=== PATIENT | male | born 1990 | race Caucasian/White ===

== ENCOUNTER 2021-11-18 10:55 | Emergency (ER) | payer OTHER, SELFPAY ==
--- NOTE | ~2021-11-18 | XR_ITS ---
EXAMINATION: XR CHEST CLINICAL INFORMATION: Cough. Covid exposure. COMPARISON: None TECHNIQUE: 2 views of the chest were obtained. FINDINGS: No significant abnormality is noted involving the heart, lungs, mediastinum, bony thorax or soft tissues. XR/XR chest 2V IMPRESSION: Unremarkable examination.
--- NOTE | 2021-11-18 12:02 | ED_ITS ---
HPI - URI/Sore Throat General Chief Complaint: Medical Clearance Stated Complaint: LOST OF TASTE COVID EXPOSURE Time Seen by Provider: 11/18/21 11:54 Related Data Allergies Allergy/AdvReac Type Severity Reaction Status Date / Time No Known Allergies Allergy Verified 11/18/21 11:54 [facility] Past Medical History Medical History (Updated 11/18/21 @ 14:21 by ALEX Simons) No known health problems Social History Social History Advance Directives: No Advance Directives Information Provided: No Physical Exam Vital Signs: Vital Signs: Last Vital Signs Temp 98.6 F 11/18/21 12:03 Pulse 98 11/18/21 12:03 Resp 18 11/18/21 12:03 BP 127/60 11/18/21 12:03 Pulse Ox 99 11/18/21 12:03 BMI result Body Mass Index 33.3 Course Course Course Narrative: 12pm - Quick assessment. 31-year-old male presenting to the ED with his father with request to be tested for COVID due to positive COVID exposure approximately 5 days ago. Reports he is not vaccinated to COVID. Denies recent travel or any other sick contacts. At this time patient is alert and oriented x3. Not in any acute distress. No focal neuro deficits are noted. Therefore COVID swab collected. Chest x-ray ordered. Patient and waiting room waiting to be called to the main ED for further evaluation treatment. MDM - URI/Sore Throat Lab Data Labs: Lab Results 11/18/21 Range/Units 12:00 COVID-19 ([facility]) Positive A (Negative) COVID-19 Clin Com See Note Discharge Plan Discharge Clinical Impression: COVID-19 Patient Disposition: Home, Self-Care Instructions: COVID-19 (Coronavirus Disease 2019) (ED) Additional Instructions: You came back positive for COVID. Recommend 14 days self-isolation. Return to the ED immediately for any chest pain, shortness of breath, calf pain, weakness, dizziness, coughing up blood, leg swelling, or any other concerning symptoms. Please follow up with PCP. Stand Alone Forms: Work/School Release Interventions: ED Discharge Assessment Last Done: 11/18/21 14:45 Discharge Date/Time: 11/18/21 14:46 Print Language: Armenian
[2021-11-18 12:03] VITALS: BP 127/60; PULSE 98; RESP 18; TEMP 37; O2SAT 99; BMI 33.3
[2021-11-18 12:22] LABS: COVID-19 Test Positive (Negative)
--- NOTE | 2021-11-18 14:09 | ED_ITS ---
HPI - General Adult General Chief complaint: Medical Clearance Stated complaint: LOST OF TASTE COVID EXPOSURE Time Seen by Provider: 11/18/21 11:54 Source: patient Mode of arrival: ambulatory Limitations: no limitations History of Present Illness HPI narrative: patient presents to ED for loss of taste due to COVID exposure. Patient states his coworkers were positive for COVID virus. Patient states no coughing, chest pain, or shortness of breath Related Data Allergies Allergy/AdvReac Type Severity Reaction Status Date / Time No Known Allergies Allergy Verified 11/18/21 11:54 Review of Systems Review of Systems: Yes all other systems are reviewed and are negative Constitutional: Constitutional: Reports as per HPI and Reports no additional constitutional complaints Eyes: Eyes: Reports as per HPI and Reports no additional eye complaints ENT: Reports system reviewed and no additional complaints, except as documented and Reports as per HPI Comments: Loss of taste Cardiovascular: Cardiovascular: Reports as per HPI and Reports no additional cardiovascular complaints Respiratory: Respiratory: Reports as per HPI and Reports no additional respiratory complaints Gastrointestinal: Gastrointestinal: Reports as per HPI and Reports no additional gastrointestinal complaints Genitourinary: Genitourinary: Reports no additional male genitourinary complaints and Reports as per HPI Musculoskeletal: Musculoskeletal: Reports no additional musculoskeletal complaints and Reports as per HPI Neurologic: Reports system reviewed and no additional complaints, except as documented and Reports as per HPI Psychiatric: Psychiatric: Reports no additional psychiatric complaints and Reports as per HPI PMFSH Past Medical History Medical History (Updated 11/18/21 @ 14:21 by ALEX Simons) No known health problems Social History Social History Advance Directives: No Advance Directives Information Provided: No Physical Exam Vital Signs: Vital Signs: Last Vital Signs Temp 98.6 F 11/18/21 12:03 Pulse 98 11/18/21 12:03 Resp 18 11/18/21 12:03 BP 127/60 11/18/21 12:03 Pulse Ox 99 11/18/21 12:03 BMI result Body Mass Index 33.3 Const: Other: Loss of taste General: cooperative, healthy appearing, comfortable, no acute distress, well developed and alert Orientation/consciousness: patient oriented x3 HENMT: Head: Yes normal to inspection, Yes No palpable skull fracture present, Yes normocephalic, Yes atraumatic and No abrasion Eyes: General: appearance normal, both eyes and all related structures Neck: Neck: Yes normal visual inspection, Yes full ROM, Yes no lymphadenopath y, Yes no meningeal signs, Yes trachea midline, Yes supple, No anterior neck swelling and No tender Chest: Chest palpation & inspection: normal inspection of the chest and normal palpation of entire chest wall Resp: Effort & Inspection: normal respiratory effort and able to speak in complete sentences Auscultation: clear to auscultation bilaterally Cardio: Jugular venous distension: no JVD Heart sounds: S1 normal heart sound present and S2 normal heart sound present GI: Inspection: Yes normal to inspection and No abdominal wall ecchymosis Palpation (GI): Soft to palpation, not firm, nontender, no guarding and not rigid : General: No CVA tenderness and Yes no CVA tenderness Back/Spine/Pelvis: Back: no CVA tenderness, No CVA tenderness and No back tenderness Skin: General skin exam: no rashes or lesions noted and elasticity normal Neuro: General: patient oriented x3, gait normal, no meningeal signs and CN's II-XI intact bilaterally Cranial nerves: Yes CN's II-XII intact bilaterally Extrem: General: Yes normal to inspection and Yes full ROM Psych: Appearance: grossly normal, well kempt and not disheveled Course Course Course Narrative: Chest x-ray COVID ordered Reevaluation(s) Reevaluation #1: Chest x-ray normal. COVID swab positive. Patient educated was educated on respiratory distress symptoms and told to return to the ED if he has them Time: 14:16 Medical Decision Making MDM Narrative Medical decision making narrative: COVID Lab Data Labs: Lab Results 11/18/21 Range/Units 12:00 COVID-19 ([facility]) Positive A (Negative) COVID-19 Clin Com See Note Discharge Plan Discharge Clinical Impression: COVID-19 Patient Disposition: Home, Self-Care Instructions: COVID-19 (Coronavirus Disease 2019) (ED) Additional Instructions: You came back positive for COVID. Recommend 14 days self-isolation. Return to the ED immediately for any chest pain, shortness of breath, calf pain, weakness, dizziness, coughing up blood, leg swelling, or any other concerning symptoms. Please follow up with PCP. Stand Alone Forms: Work/School Release Interventions: ED Discharge Assessment Last Done: 11/18/21 14:45 Discharge Date/Time: 11/18/21 14:46 Print Language: Citizen Of [place]
== END 2021-11-18 14:46 | disposition home or self-care (01) ==
PROVIDERS: Physician Assistant Medical; Emergency Provider Emergency Medicine; PCP Internal Medicine
DX: U07.1 COVID-19 (principal); R43.9 Unspecified disturbances of smell and taste
CPT/HCPCS: 36415; 71046; 87635; 99283